=== PATIENT | female | born 1950 | race African-American/Black ===

== ENCOUNTER 2017-06-13 19:55 | Inpatient (IN) | payer MEDICARE ==
[~2017-06-13] VITALS: Ht 167.6 cm; Wt 61.8 kg
[2017-06-13 20:00] VITALS: BP 122/62
[2017-06-13 22:00] VITALS: BP 122/62
[2017-06-13] MEDS ORDERED: MAGNESIUM/ALUMINUM HYDROXIDE/SIMETHICONE 30ML UDC PO PRN (22:00)
[2017-06-13] MEDS ORDERED: DIPHENHYDRAMINE 50MG/ML VIAL IV PRN (22:00)
[2017-06-13] MEDS ORDERED: IPRATROPIUM/ALBUTEROL 0.5-3(2.5)MG/3ML NEB HHN PRN (22:00)
[2017-06-13] MEDS ORDERED: ONDANSETRON HCL 4MG TABLET PO PRN (22:00)
[2017-06-13] MEDS ORDERED: CLONIDINE 0.1MG TABLET PO PRN (22:00)
[2017-06-13] MEDS: AMLODIPINE 2.5MG TABLET PO SCH ×2 (22:37→22:45)
[2017-06-13] MEDS: ACETAMINOPHEN 325MG TABLET PO PRN (22:45)
[2017-06-14] MEDS: ACYCLOVIR 400 MG TABLET PO SCH ×4 (00:51→22:04)
[2017-06-14 07:30] LABS: HEMATOCRIT 27.4 % (36.0-48.0); HEMOGLOBIN 9.3 g/dL (12.0-16.0); MEAN CORPUSCULAR HEMOGLOBIN 31.1 pg (28.0-32.0); MEAN CORPUSCULAR VOLUME 91.3 fL (81.0-99.0); PLATELET 400 x1000/uL (130-400); RED CELL DISTRIBUTION WIDTH 13.5 % (11.6-14.6)
[2017-06-14 07:37] LABS: CHLORIDE 105 mEq/L (98-107)
[2017-06-14 07:52] LABS: PREALBUMIN 8.8 mg/dL (20.0-40.0)
[2017-06-14 08:00] VITALS: BP 115/63
[2017-06-14] MEDS: MEGESTROL ACETATE 400 MG/10 ML UDC PO SCH (09:00)
[2017-06-14] MEDS: NICOTINE 21MG PATCH TD SCH (09:00)
[2017-06-14] MEDS: DOCUSATE SODIUM 100MG CAPSULE PO SCH ×2 (09:00→18:40)
[2017-06-14] MEDS: POTASSIUM CHLORIDE 20MEQ TABLET SR PO SCH ×2 (09:10→18:40)
[2017-06-14] MEDS: AMLODIPINE 2.5MG TABLET PO SCH ×2 (09:14→21:00)
[2017-06-14] MEDS: CEFTRIAXONE 2 G in DEXTROSE 5% WATER 50 ML IV SCH ×2 (09:47→22:07)
[2017-06-14] MEDS: ACETAMINOPHEN 325MG TABLET PO PRN ×2 (11:44→22:23)
[2017-06-14] MEDS ORDERED: CEFTRIAXONE 2 G PREMIX 50 ML IV SCH (18:00)
[2017-06-14 20:00] VITALS: BP 122/63
[2017-06-14 22:53] LABS: CLARITY URINE CLEAR (CLEAR); COLOR URINE YELLOW (YELLOW); KETONES URINE NEGATIVE (NEGATIVE); LEUKOCYTE ESTERASE URINE NEGATIVE (NEGATIVE); NITRITE URINE NEGATIVE (NEGATIVE); OCCULT BLOOD URINE NEGATIVE (NEGATIVE); PH URINE 7.5 (4.5-8.0); PROTEIN URINE NEGATIVE (NEGATIVE); SPECIFIC GRAVITY URINE 1.017 (1.005-1.030); UROBILINOGEN URINE 0.2 E.U./dL (0.2-1.0)
[2017-06-15] MEDS: ACYCLOVIR 400 MG TABLET PO SCH ×3 (06:01→21:17)
[2017-06-15 08:00] VITALS: BP 127/67
[2017-06-15] MEDS: DOCUSATE SODIUM 100MG CAPSULE PO SCH ×3 (09:00→18:15)
[2017-06-15] MEDS: MEGESTROL ACETATE 400 MG/10 ML UDC PO SCH (09:00)
[2017-06-15] MEDS: NICOTINE 21MG PATCH TD SCH (09:00)
[2017-06-15] MEDS: AMLODIPINE 2.5MG TABLET PO SCH ×2 (09:00→21:00)
[2017-06-15] MEDS: POTASSIUM CHLORIDE 20MEQ TABLET SR PO SCH (09:22)
[2017-06-15 16:53] LABS: CHLORIDE 104 mEq/L (98-107)
[2017-06-15] MEDS: CEFTRIAXONE 2 G in DEXTROSE 5% WATER 50 ML IV SCH (18:15)
[2017-06-15] MEDS: ACETAMINOPHEN 325MG TABLET PO PRN (19:41)
[2017-06-15 20:00] VITALS: BP 119/68
[2017-06-16] MEDS: ACYCLOVIR 400 MG TABLET PO SCH ×3 (05:29→21:16)
[2017-06-16] MEDS: CEFTRIAXONE 2 G in DEXTROSE 5% WATER 50 ML IV SCH ×2 (05:30→17:44)
[2017-06-16 06:54] LABS: BASOPHILS % 0.7 % (0.0-2.0); EOSINOPHILS % 0.5 % (0.0-5.0); HEMATOCRIT. 28.1 % (36.0-48.0); HEMOGLOBIN. 9.5 g/dL (12.0-16.0); LYMPHOCYTES % 16.4 % (20.0-50.0); MEAN PLATELET VOLUME 7.8 fl (7.4-10.4); MONOCYTES % 8.4 % (2.0-8.0); PLATELET 438 x1000/uL (130-400); RED BLOOD CELL COUNT 3.05 mill/uL (4.2-5.4); RED CELL DISTRIBUTION WIDTH 13.6 % (11.6-14.6)
[2017-06-16 07:12] LABS: CHLORIDE 105 mEq/L (98-107)
[2017-06-16 07:18] LABS: PHOSPHORUS 3.8 mg/dL (2.5-4.9)
[2017-06-16 07:19] LABS: LDL CHOLESTEROL 78 mg/dL (5-100)
[2017-06-16 07:29] LABS: HDL CHOLESTEROL 36 mg/dL (40-59)
[2017-06-16 07:33] LABS: TOTAL IRON BINDING CAPACITY 189 ug/dL (250-450)
[2017-06-16 08:00] VITALS: BP 120/56
[2017-06-16] MEDS: NICOTINE 21MG PATCH TD SCH (09:00)
[2017-06-16] MEDS: AMLODIPINE 2.5MG TABLET PO SCH ×2 (09:00→21:00)
[2017-06-16] MEDS: DOCUSATE SODIUM 100MG CAPSULE PO SCH ×2 (09:00→17:00)
[2017-06-16] MEDS: MEGESTROL ACETATE 400 MG/10 ML UDC PO SCH (09:00)
[2017-06-16 09:25] LABS: FOLIC ACID (FOLATE) SERUM 8.2 ng/mL (>5.38)
[2017-06-16] MEDS: ACETAMINOPHEN 325MG TABLET PO PRN (19:59)
[2017-06-16 20:00] VITALS: BP 116/50
[2017-06-17] MEDS: CEFTRIAXONE 2 G in DEXTROSE 5% WATER 50 ML IV SCH ×2 (05:20→17:53)
[2017-06-17] MEDS: ACYCLOVIR 400 MG TABLET PO SCH ×3 (05:20→21:24)
[2017-06-17 08:11] VITALS: BP 114/60
[2017-06-17] MEDS: AMLODIPINE 2.5MG TABLET PO SCH ×2 (09:00→21:00)
[2017-06-17] MEDS: DOCUSATE SODIUM 100MG CAPSULE PO SCH ×2 (09:00→17:00)
[2017-06-17] MEDS: NICOTINE 21MG PATCH TD SCH (09:00)
[2017-06-17] MEDS: MEGESTROL ACETATE 400 MG/10 ML UDC PO SCH (09:00)
[2017-06-17] MEDS ORDERED: CYANOCOBALAMIN 1000MCG/ML VIAL IM NR (15:00)
[2017-06-17] MEDS: FERROUS SULFATE 325MG TABLET PO SCH (17:52)
[2017-06-17] MEDS: ACETAMINOPHEN 325MG TABLET PO PRN (19:45)
[2017-06-17 20:00] VITALS: BP 115/57
[2017-06-18] MEDS: CEFTRIAXONE 2 G in DEXTROSE 5% WATER 50 ML IV SCH ×2 (05:55→18:12)
[2017-06-18] MEDS: ACYCLOVIR 400 MG TABLET PO SCH ×3 (05:55→21:06)
[2017-06-18 06:18] LABS: CHLORIDE 105 mEq/L (98-107)
[2017-06-18 06:27] LABS: BASOPHILS % 0.4 % (0.0-2.0); EOSINOPHILS % 0.4 % (0.0-5.0); HEMATOCRIT. 24.7 % (36.0-48.0); HEMOGLOBIN. 8.5 g/dL (12.0-16.0); MEAN CORPUSCULAR HEMOGLOBIN 31.5 pg (28.0-32.0); MEAN CORPUSCULAR VOLUME 91.6 fL (81.0-99.0); MEAN PLATELET VOLUME 7.9 fl (7.4-10.4); MONOCYTES % 11.6 % (2.0-8.0); NEUTROPHILS % 67.6 % (40.0-76.0); PLATELET 384 x1000/uL (130-400); RED CELL DISTRIBUTION WIDTH 13.7 % (11.6-14.6)
[2017-06-18 08:00] VITALS: BP 123/67
[2017-06-18] MEDS: AMLODIPINE 2.5MG TABLET PO SCH ×2 (09:00→21:00)
[2017-06-18] MEDS: DOCUSATE SODIUM 100MG CAPSULE PO SCH ×2 (09:00→17:00)
[2017-06-18] MEDS: FERROUS SULFATE 325MG TABLET PO SCH ×2 (09:41→18:12)
[2017-06-18 20:00] VITALS: BP 137/66
[2017-06-18] MEDS: ACETAMINOPHEN 325MG TABLET PO PRN (22:07)
[2017-06-19] MEDS: ACYCLOVIR 400 MG TABLET PO SCH ×3 (06:06→21:27)
[2017-06-19] MEDS: CEFTRIAXONE 2 G in DEXTROSE 5% WATER 50 ML IV SCH ×2 (06:06→17:10)
[2017-06-19 08:10] VITALS: BP 141/60
[2017-06-19] MEDS: FERROUS SULFATE 325MG TABLET PO SCH ×2 (08:46→17:10)
[2017-06-19] MEDS: AMLODIPINE 2.5MG TABLET PO SCH ×2 (08:54→21:00)
[2017-06-19] MEDS: DOCUSATE SODIUM 100MG CAPSULE PO SCH ×2 (08:54→17:00)
[2017-06-19 09:07] LABS: BASOPHILS % 0.6 % (0.0-2.0); EOSINOPHILS % 0.7 % (0.0-5.0); HEMATOCRIT. 24.9 % (36.0-48.0); HEMOGLOBIN. 8.6 g/dL (12.0-16.0); LYMPHOCYTES % 16.8 % (20.0-50.0); MEAN CORPUSCULAR HEMOGLOBIN 31.6 pg (28.0-32.0); MEAN CORPUSCULAR VOLUME 91.7 fL (81.0-99.0); MEAN PLATELET VOLUME 7.6 fl (7.4-10.4); NEUTROPHILS % 71.9 % (40.0-76.0); PLATELET 375 x1000/uL (130-400); RED BLOOD CELL COUNT 2.71 mill/uL (4.2-5.4); RED CELL DISTRIBUTION WIDTH 13.8 % (11.6-14.6)
[2017-06-19] MEDS: CYANOCOBALAMIN 1000MCG/ML VIAL IM SCH (10:25)
[2017-06-19] MEDS: ACETAMINOPHEN 325MG TABLET PO PRN (15:13)
[2017-06-19 20:00] VITALS: BP 118/64
[2017-06-20] VITALS: BP 163/68
[2017-06-20 04:07] LABS: 25-HYDROXY VITAMIN D3 13 ng/mL (.)
[2017-06-20] MEDS: CEFTRIAXONE 2 G in DEXTROSE 5% WATER 50 ML IV SCH ×2 (05:05→17:51)
[2017-06-20] MEDS: ACYCLOVIR 400 MG TABLET PO SCH ×3 (05:05→21:16)
[2017-06-20] MEDS: ACETAMINOPHEN 325MG TABLET PO PRN ×2 (05:19→21:21)
[2017-06-20 08:00] VITALS: BP 107/52
[2017-06-20] MEDS: AMLODIPINE 2.5MG TABLET PO SCH ×2 (09:00→21:17)
[2017-06-20] MEDS: DOCUSATE SODIUM 100MG CAPSULE PO SCH ×2 (09:00→17:00)
[2017-06-20] MEDS: FERROUS SULFATE 325MG TABLET PO SCH ×2 (09:04→17:51)
[2017-06-20] MEDS: CYANOCOBALAMIN 1000MCG/ML VIAL IM SCH (09:04)
[2017-06-20] MEDS ORDERED: ERGOCALCIFEROL 50000UNITS CAPSULE PO SCH (16:00)
[2017-06-20 20:00] VITALS: BP 163/68
[2017-06-21 07:11] LABS: BASOPHILS % 1.1 % (0.0-2.0); HEMATOCRIT. 23.5 % (36.0-48.0); HEMOGLOBIN. 8.4 g/dL (12.0-16.0); LYMPHOCYTES % 26.7 % (20.0-50.0); MEAN CORPUSCULAR HEMOGLOBIN 32.7 pg (28.0-32.0); MEAN CORPUSCULAR VOLUME 91.2 fL (81.0-99.0); MEAN PLATELET VOLUME 7.8 fl (7.4-10.4); MONOCYTES % 10.7 % (2.0-8.0); NEUTROPHILS % 60.5 % (40.0-76.0); PLATELET 363 x1000/uL (130-400); RED BLOOD CELL COUNT 2.58 mill/uL (4.2-5.4); RED CELL DISTRIBUTION WIDTH 13.6 % (11.6-14.6)
[2017-06-21 07:24] LABS: CHLORIDE 108 mEq/L (98-107)
[2017-06-21 08:00] VITALS: BP 146/78
[2017-06-21] MEDS: CYANOCOBALAMIN 1000MCG/ML VIAL IM SCH (08:51)
[2017-06-21] MEDS: FERROUS SULFATE 325MG TABLET PO SCH ×2 (08:51→17:45)
[2017-06-21] MEDS: AMLODIPINE 2.5MG TABLET PO SCH ×2 (08:51→21:27)
[2017-06-21] MEDS: DOCUSATE SODIUM 100MG CAPSULE PO SCH ×2 (08:56→17:00)
[2017-06-21] MEDS: ACETAMINOPHEN 325MG TABLET PO PRN (17:50)
[2017-06-21 20:00] VITALS: BP 138/64
[2017-06-22] MEDS: DOCUSATE SODIUM 100MG CAPSULE PO SCH (08:04)
[2017-06-22] MEDS: CYANOCOBALAMIN 1000MCG/ML VIAL IM SCH (08:05)
[2017-06-22] MEDS: FERROUS SULFATE 325MG TABLET PO SCH (08:05)
[2017-06-22] MEDS: AMLODIPINE 2.5MG TABLET PO SCH (08:05)
[2017-06-22 08:17] VITALS: BP 135/63
[2017-06-22 08:22] LABS: CHLORIDE 107 mEq/L (98-107)
[2017-06-22 08:29] LABS: BASOPHILS % 1.1 % (0.0-2.0); EOSINOPHILS % 0.9 % (0.0-5.0); HEMOGLOBIN. 8.6 g/dL (12.0-16.0); LYMPHOCYTES % 21.3 % (20.0-50.0); MEAN CORPUSCULAR VOLUME 92.6 fL (81.0-99.0); MONOCYTES % 11.2 % (2.0-8.0); NEUTROPHILS % 65.5 % (40.0-76.0); PLATELET 339 x1000/uL (130-400)
[2017-06-22 09:34] VITALS: BP 135/63
[2017-06-22] MEDS ORDERED: FERR325T6 PO (12:54)
[2017-06-22] MEDS ORDERED: AMLO2.5T2 PO (12:54)
[2017-06-22] MEDS ORDERED: CYAN10009 PO (13:00)
== END 2017-06-22 11:02 | disposition home or self-care (01) | DRG 70 ==
PROVIDERS: ADMIT Physical Medicine & Rehabilitation Spinal Cord Injury Medicine; ATTEND Internal Medicine Nephrology
DX: G93.40 Encephalopathy, unspecified (principal); A40.3 Sepsis due to Streptococcus pneumoniae; R65.20 Severe sepsis without septic shock; J96.00 Acute respiratory failure, unspecified whether with hypoxia or hypercapnia; E43 Unspecified severe protein-calorie malnutrition; J84.9 Interstitial pulmonary disease, unspecified; J15.4 Pneumonia due to other streptococci; D69.6 Thrombocytopenia, unspecified; E87.2 Acidosis; I42.9 Cardiomyopathy, unspecified; B00.2 Herpesviral gingivostomatitis and pharyngotonsillitis; N39.0 Urinary tract infection, site not specified; J44.0 Chronic obstructive pulmonary disease with (acute) lower respiratory infection; D64.9 Anemia, unspecified; E87.6 Hypokalemia; R73.9 Hyperglycemia, unspecified; I35.0 Nonrheumatic aortic (valve) stenosis; I10 Essential (primary) hypertension; B00.1 Herpesviral vesicular dermatitis; E55.9 Vitamin D deficiency, unspecified; L89.90 Pressure ulcer of unspecified site, unspecified stage; R53.81 Other malaise; R26.9 Unspecified abnormalities of gait and mobility; F17.210 Nicotine dependence, cigarettes, uncomplicated; F39 Unspecified mood [affective] disorder; H91.90 Unspecified hearing loss, unspecified ear; I25.10 Atherosclerotic heart disease of native coronary artery without angina pectoris; N28.9 Disorder of kidney and ureter, unspecified; R13.10 Dysphagia, unspecified
CPT/HCPCS: 36415; 80048; 80053; 80061; 81003; 82270; 82306; 82607; 82728; 82746; 83036; 83540; 83550; 83735; 84100; 84134; 84443; 84630; 85025; 85027; 87086; 92523; 92610; 93005; 93970; 97110; 97112; 97116; 97162; 97166; 97530; 97535; G0515; J0696; J3420; J7040; J7050; J7060